=== PATIENT | female | born 1990 | race African-American/Black ===

== ENCOUNTER 2021-09-13 00:42 | Inpatient (IN) ==
[2021-09-13 01:23] LABS: Bacteria,Urine Occasional /HPF (Few); Bilirubin,Urine Negative (Negative); Blood, Urine Small mg/dL (Negative); Glucose,Urine (UA) Negative (Negative); Hyaline Casts,Urine 1 /LPF (0-3); Ketones,Urine Negative (Negative); Mucus,Urine Occasional /LPF (Occasional); Nitrite,Urine Negative (Negative); Protein,Urine Negative; RBC,Urine 1 /HPF (0-4); Squamous Epithelial Cell,Urine Occasional /HPF (0-10); Urine Appearance CLEAR (Clear); Urine Color Yellow (Yellow); Urine Specific Gravity 1.006 (1.001-1.035); Urine Urobilinogen < 2.0 EU/DL (0.2-1.0)
[2021-09-13] MEDS ORDERED: MEPERIDINE 50 MG/1 ML VIAL IV ONE (02:03)
[2021-09-13] MEDS ORDERED: ONDANSETRON 4 MG/2 ML VIAL IV PRN ×3 (02:04→20:51)
[2021-09-13 02:29] LABS: Protein/Creatinine Ratio,Urine 0.2 RATIO
[2021-09-13] MEDS: LACTATED RINGERS 1,000 ML IV SCH ×2 (03:09→12:08)
[2021-09-13] MEDS ORDERED: MEPERIDINE 50 MG/1 ML VIAL IV PRN (03:25)
[2021-09-13] MEDS ORDERED: BUTORPHANOL 2 MG/ML VIAL IV PRN (03:25)
[2021-09-13] MEDS ORDERED: diphenhydrAMINE 50 MG/1 ML VIAL IV PRN ×2 (03:49)
[2021-09-13] MEDS ORDERED: hydrOXYzine HCL 25 MG/1 ML VIAL IM PRN (03:49)
[2021-09-13] MEDS ORDERED: PROMETHAZINE 25 MG/1 ML VIAL IM ONE (03:49)
[2021-09-13] MEDS ORDERED: ePHEDrine 50 MG/ML VIAL IV PRN (03:49)
[2021-09-13] MEDS ORDERED: CITRIC ACID/SODIUM CITRATE 30 ML UDCUP PO ONE (03:49)
[2021-09-13] MEDS ORDERED: LACTATED RINGERS 1,000 ML IV ONE (03:49)
[2021-09-13] MEDS ORDERED: NALOXONE 0.4 MG/ML VIAL IV PRN (03:49)
[2021-09-13] MEDS ORDERED: FAMOTIDINE 20 MG/2 ML VIAL IV ONE ×2 (03:49→03:53)
[2021-09-13] MEDS ORDERED: CITRIC ACID/SODIUM CITRATE 30 ML UDCUP ONE (03:52)
[2021-09-13 04:33] LABS: Basophils % 0.4 % (0.0-0.8); Eosinophils % 0.3 % (0.00-10.9); Immature Granulocytes % 0.6 %; Immature Granulocytes Absolute 0.04 #; Lymphocytes # 1.9 10*3/uL (1.4-4.0); Lymphocytes % 26.5 % (21.3-54.2); Mean Corpuscular HGB Conc 31.4 GM/DL (32-36); Mean Corpuscular Volume 76.3 FL (87-102); Mean Platelet Volume 11.3 FL (9.6-12.0); Monocytes % 8.5 % (1.7-12.7); Neutrophils % 63.7 % (38.7-73.9); Platelet Count 241 T/CUMM (130-400); Red Blood Count 4.59 MC/CUMM (3.8-5.5); Red Cell Distribution Width 14.1 % (9.3-17.3); White Blood Count 7.1 T/CUMM (4-12)
[2021-09-13 04:47] LABS: Bilirubin,Direct 0.1 MG/DL (0.0-0.20); Uric Acid 3.1 MG/DL (2.6-6.0)
[2021-09-13 04:49] LABS: INR 0.9; PT Patient Result 10.2 SECS (10.5-12.0); Partial Thromboplastin Time 30.7 SECS (23.8-32.1)
[2021-09-13 04:53] LABS: Albumin 2.4 G/DL (3.4-5.0); Bilirubin,Total 0.5 MG/DL (0.20-1.00); Calcium 8.7 MG/DL (8.5-10.1); Osmolality,Calculated 272.5 MOS/KG (273-304); Potassium 3.7 MMOL/L (3.5-5.1)
[2021-09-13] MEDS: fentaNYL 2 MCG/ROPIV 0.2% EPID 100 ML EPIDURAL SCH ×2 (04:57→13:06)
[2021-09-13] MEDS ORDERED: miSOPROStoL 200 MCG TABLET ONE ×2 (05:23→18:57)
[2021-09-13] MEDS ORDERED: SODIUM CHLORIDE 0.9% 0 ML IV ONE (05:23)
[2021-09-13] MEDS ORDERED: TRANEXAMIC ACID 1,000 MG/10 ML VIAL ONE ×2 (05:23→18:57)
[2021-09-13] MEDS ORDERED: METHYLERGONOVINE 0.2 MG/1 ML AMP ONE ×2 (05:24→18:58)
[2021-09-13] MEDS ORDERED: OXYTOCIN/LR 20 UNIT/1,000 ML BAG IV ONE ×2 (05:24→20:51)
[2021-09-13] MEDS ORDERED: CARBOPROST TROMETHAMINE 250 MCG/ML AMP IM ONE ×2 (05:24→18:58)
[2021-09-13 06:18] LABS: Amorphous Crystals,Urine Occasional /HPF (Few); Bilirubin,Urine Negative (Negative); Blood, Urine Negative (Negative); Glucose,Urine (UA) Negative (Negative); Ketones,Urine Negative (Negative); Mucus,Urine Occasional /LPF (Occasional); Nitrite,Urine Negative (Negative); Protein,Urine Negative; RBC,Urine 1 /HPF (0-4); Squamous Epithelial Cell,Urine Occasional /HPF (0-10); Urine Appearance CLEAR (Clear); Urine Color Yellow (Yellow); Urine Specific Gravity 1.013 (1.001-1.035); Urine Urobilinogen < 2.0 EU/DL (0.2-1.0)
[2021-09-13] MEDS ORDERED: OXYTOCIN/LR 20 UNIT/1,000 ML BAG IV SCH (16:30)
[2021-09-13] MEDS ORDERED: SODIUM CHLORIDE 0.9% 100 ML IV ONE (18:57)
[2021-09-13] MEDS ORDERED: miSOPROStoL 200 MCG TABLET PO ONE (20:46)
[2021-09-13] MEDS ORDERED: oxyCODONE/ACETAMINOPHEN 5-325 MG TABLET PO PRN (20:51)
[2021-09-13] MEDS ORDERED: HYDROCORTISONE 2.5% RECTAL CREAM 30 GM TUBE TOP PRN (20:51)
[2021-09-13] MEDS ORDERED: MEASLES/MUMPS/RUBELLA VACCINE 0.5 ML VIAL SUBCUT ONE (20:51)
[2021-09-13] MEDS ORDERED: DIPH/TET/ACEL PERT BOOSTER VACCINE 0.5 ML VIAL IM ONE (20:51)
[2021-09-13] MEDS ORDERED: BISACODYL 10 MG SUPP RECTAL PRN (20:51)
[2021-09-13] MEDS ORDERED: LANOLIN 50% CREAM 0.3 OZ TUBE TOP PRN (20:51)
[2021-09-13] MEDS ORDERED: BENZOCAINE 20%/MENTHOL 0.5% SPRAY 56 GM CAN TOP PRN (20:51)
[2021-09-13] MEDS ORDERED: WITCH HAZEL PADS 100/JAR TOP PRN (20:51)
[2021-09-13] MEDS ORDERED: ACETAMINOPHEN 325 MG TABLET PO PRN (20:51)
[2021-09-13] MEDS ORDERED: RHO(D) IMMUNE GLOBULIN 300 MCG SYRINGE IM ONE (20:51)
[2021-09-13] MEDS: oxyCODONE/ACETAMINOPHEN 5-325 MG TABLET PO PRN (21:03)
[2021-09-13 21:04] LABS: Cord Venous Blood PCO2 39.5 MMHG; Cord Venous Blood PO2 25.6
[2021-09-13] MEDS: IBUPROFEN 800 MG TABLET PO PRN (21:47)
[2021-09-13] MEDS: DOCUSATE SODIUM 100 MG CAPSULE PO SCH (22:50)
[2021-09-14] MEDS: oxyCODONE/ACETAMINOPHEN 5-325 MG TABLET PO PRN ×2 (03:58→13:31)
[2021-09-14 07:01] LABS: Basophils % 0.2 % (0.0-0.8); Eosinophils % 0.1 % (0.00-10.9); Hemoglobin 9.6 GM/DL (12.0-16.0); Immature Granulocytes % 0.6 %; Immature Granulocytes Absolute 0.09 #; Lymphocytes % 13.5 % (21.3-54.2); Mean Corpuscular Volume 74.3 FL (87-102); Mean Platelet Volume 11.2 FL (9.6-12.0); Monocytes % 7.3 % (1.7-12.7); Neutrophils % 78.3 % (38.7-73.9); Platelet Count 216 T/CUMM (130-400); Red Blood Count 4.17 MC/CUMM (3.8-5.5); Red Cell Distribution Width 14.1 % (9.3-17.3); White Blood Count 15.2 T/CUMM (4-12)
[2021-09-14] MEDS: DOCUSATE SODIUM 100 MG CAPSULE PO SCH ×2 (09:11→20:01)
[2021-09-14] MEDS: IBUPROFEN 800 MG TABLET PO PRN ×2 (09:12→20:02)
[2021-09-14] MEDS: SIMETHICONE CHEW 80 MG TABLET PO PRN ×2 (09:13→14:10)
[2021-09-15] MEDS: IBUPROFEN 800 MG TABLET PO PRN (06:42)
[2021-09-15 07:50] VITALS: BP 119/73
[2021-09-15] MEDS: DOCUSATE SODIUM 100 MG CAPSULE PO SCH (08:17)
[2021-09-15] MEDS ORDERED: INFLUENZA VIRUS VACCINE 0.5 ML SYRINGE IM ONE (09:00)
== END 2021-09-15 12:29 | disposition home or self-care (01) | DRG 807 ==
LOC: N.LD 00:42 → N.OB 23:20
PROVIDERS: ADMIT Specialist; ATTEND Specialist